=== PATIENT | male | born 1950 ===

== ENCOUNTER 2020-01-12 18:36 | Observation (INO) | payer MEDICARE, OTHER ==
[~2020-01-12] VITALS: Ht 175.3 cm; Wt 54.5 kg
--- NOTE | 2020-01-12 18:46 | NUR ---
CP FOR LAST THREE DAYS WORSE WITH EXCERTION, HX OF RECENT ER VISIT FOR SAME. PT STATES "I WAS TOLD I HAD A 60% BLOCKAGE" PT LEFT AMA BECAUSE HE FELT STAFF WAS RUDE. PT WITH LBBB ON MONITOR. 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
--- NOTE | 2020-01-12 18:59 | NUR ---
BEDSIDE REPORT FROM JUAN OLEA. PT CARE TRANSFERRED AT THIS TIME. WAITING FOR ERP EVAL. NAD, STATES HE WAS AT HOSPITAL IN [place] FOR CHEST PAIN THEN LEFT AMA AND DROVE TO [place] TO BE WITH SON WHO IS GOING TO HELP PROVIDE CARE. PT BIB [facility] FOR CHEST PAIN. 324 MG ASA ENROUTE. PT PLACED ON SPO2/BP/ECG MONITORING. WCTM.
[2020-01-12] MEDS ORDERED: KETOROLAC 30 MG/1 ML IM ONE (19:30)
[2020-01-12] MEDS ORDERED: PLEASE ENTER ALLERGIES MC SCH (19:30)
[2020-01-12] MEDS ORDERED: KETOROLAC 30 MG/1 ML ONE (19:55)
--- NOTE | 2020-01-12 20:02 | NUR ---
pt medicated per jul, resting on gurney, VSS, NAD, placed on 2L NC for SPO2 sats. Now satting at 95%. pt denies additional needs at this time. WCTM.
[2020-01-12 20:39] LABS: BASOPHILS # (AUTO) 0.02 x10^3/uL (0-0.1); BASOPHILS % (AUTO) 1 % (0-1); EOSINOPHILS # (AUTO) 0.13 x10^3/uL (0-0.4); EOSINOPHILS % (AUTO) 4 % (1-7); LYMPHOCYTES # (AUTO) 0.96 x10^3/uL (1-3.4); LYMPHOCYTES % (AUTO) 29 % (22-44); MD NO; MEAN CORPUSCULAR HEMOGLOBIN 34.2 pg (27.5-34.5); MEAN CORPUSCULAR HGB CONC 33.1 g/dL (33.2-36.2); MEAN CORPUSCULAR VOLUME 103.3 fL (81-97); MEAN PLATELET VOLUME 9.2 fL (7.4-10.4); MONOCYTES # (AUTO) 0.27 x10^3/uL (0.2-0.8); MONOCYTES % (AUTO) 8 % (2-9); NEUTROPHILS # (AUTO) 1.96 x10^3/uL (1.8-6.8); NEUTROPHILS % (AUTO) 59 % (42-75); PLATELET COUNT 138 x10^3/uL (130-400); RED BLOOD COUNT 3.89 x10^6/uL (4.38-5.82); RED CELL DISTRIBUTION WIDTH 13.3 % (9.4-14.8)
--- NOTE | 2020-01-12 20:47 | NUR ---
PT SITTING UP IN [facility], STATES HIS PAIN IS A "9/10" AND THAT HE IS UNCOMFORTABLE. PT APPEARS NAD, SON AT BS. NO CHANGE IN CONDITION. WCTM.
[2020-01-12 20:49] LABS: ALANINE AMINOTRANSFERASE 29 U/L (12-78); CALCIUM 8.7 mg/dL (8.5-10.1)
[2020-01-12 20:54] LABS: ALKALINE PHOSPHATASE 81 U/L (45-117); BILIRUBIN,TOTAL 0.8 mg/dL (0.2-1.0); CREATININE 0.74 mg/dL (0.7-1.3); TOTAL PROTEIN 7.3 g/dL (6.4-8.2); TROPONIN I 0.025 ng/mL (0.000-0.045)
[2020-01-12] MEDS ORDERED: ONDANSETRON 2MG/ML, 2ML IVPush ONE (21:00)
[2020-01-12] MEDS ORDERED: MORPHINE SULFATE 4 MG/ML, 1ML IVPush PRN (21:00)
[2020-01-12 21:03] LABS: ANION GAP 3 mmol/L (5-15); CHLORIDE 110 mmol/L (98-107)
--- NOTE | 2020-01-12 21:05 | NUR ---
PT MEDICATED PER MAR FOR PAIN, NAD, NO CHANGE IN CONDITION, WCTM, PT UP FOR RECHECK. SON AT .
[2020-01-12] MEDS ORDERED: ONDANSETRON 2MG/ML, 2ML ONE (21:06)
[2020-01-12] MEDS ORDERED: MORPHINE SULFATE 4 MG/ML, 1ML ONE (21:07)
--- NOTE | 2020-01-12 21:57 | NUR ---
pt instructed in how to use incentive spirometer. pt demonstrated skill appropriately. RN to BS, pt had removed NC, NC placed back in nose, O2 sats back to 94% on 3L. pt expressing to RN that "I am very aggitated that i am being admitted cause theres alwasy just another [facility] doctor to see". pt states "everytime i get stuck in a [facility] i have no reading glasses either." waiting for admit bed and orders, pt nad, wctm.
[2020-01-12] MEDS ORDERED: PROP60CA PO (22:29)
[2020-01-12] MEDS ORDERED: LISI-170 PO (22:29)
[2020-01-12] MEDS ORDERED: MELO15TA24 PO (22:29)
[2020-01-12] MEDS ORDERED: ventolin INH (22:29)
[2020-01-12] MEDS ORDERED: BUDE10.2 INH (22:29)
[2020-01-12] MEDS ORDERED: meloxicam PO (22:29)
[2020-01-12] MEDS ORDERED: CLON1TAB11 PO (22:29)
[2020-01-12] MEDS ORDERED: ALBU2TAB PO (22:29)
--- NOTE | 2020-01-12 22:30 | NUR ---
med req obtained, son at bs, pt resting on gurney, nad, vss, denies additional needs at this time. waiting for admit bed, wctm.
--- NOTE | 2020-01-12 23:20 | NUR ---
LATE ENTRY: REPORT CALLED TO MERLINE OLEA, PT TO BE TRANSFERRED TO FLOOR.
[2020-01-13 01:46] VITALS: BP 156/69
[2020-01-13] MEDS ORDERED: SODIUM CHLORIDE 0.9% 1,000 ML IV SCH (02:21)
[2020-01-13] MEDS ORDERED: ONDANSETRON ODT 4 MG PO PRN (02:30)
[2020-01-13] MEDS ORDERED: ONDANSETRON 2MG/ML, 2ML IVPush PRN (02:30)
[2020-01-13] MEDS ORDERED: POLYETHYLENE GLYCOL 17 GM PACKET PO PRN (02:30)
[2020-01-13] MEDS ORDERED: BISACODYL 10 MG SUPP PR PRN (02:30)
[2020-01-13] MEDS ORDERED: OXYcodone IR 5MG TABLET PO PRN (02:30)
[2020-01-13] MEDS ORDERED: hydrALAzine 20 MG/ML, 1ML IVPush PRN (02:30)
[2020-01-13] MEDS ORDERED: DOCUSATE 100 MG CAPSULE PO PRN (02:30)
[2020-01-13] MEDS ORDERED: PROMETHAZINE 25 MG/ML, 1ML IM PRN (02:30)
[2020-01-13] MEDS ORDERED: ACETAMINOPHEN 325 MG TABLET PO PRN (02:30)
[2020-01-13] MEDS ORDERED: morphine SULFATE 10 MG/ML, 1ML IVPush PRN (02:30)
[2020-01-13] MEDS ORDERED: ALBUTEROL HFA 90 MCG/SPRAY INH PRN (03:30)
[2020-01-13 04:23] LABS: LDL/HDL RATIO 0.8 (0.5-3.0)
[2020-01-13 04:33] LABS: FREE T4 (FREE THYROXINE) 1.13 ng/dL (0.76-1.46)
[2020-01-13] MEDS: HEPARIN 5,000 UNITS/ML, 1ML SQ SCH ×3 (06:04→21:55)
[2020-01-13 07:49] VITALS: BP 171/85
[2020-01-13] MEDS ORDERED: REGADENOSON 0.4 MG/5 ML SYRINGE ONE (08:10)
[2020-01-13] MEDS: LISINOPRIL 40 MG TABLET PO SCH (08:23)
[2020-01-13] MEDS: MELOXICAM 15 MG TABLET PO SCH (08:23)
[2020-01-13 09:05] LABS: TROPONIN I 0.027 ng/mL (0.000-0.045)
[2020-01-13] MEDS ORDERED: METHOCARBAMOL 500 MG TABLET PO PRN (11:00)
[2020-01-13] MEDS: FLUTICASONE/VILANTEROL 200-25MCG/INH INH SCH (11:57)
[2020-01-13] MEDS: ACETAMINOPHEN 325 MG TABLET PO SCH ×4 (11:57→21:55)
[2020-01-13] MEDS: PROPRANOLOL 60 MG CAP.SA.24H PO SCH (11:57)
[2020-01-13 14:55] VITALS: BP_SYST 104; BP_SYST 160; BP_DIAS 54; BP_DIAS 84
[2020-01-13] MEDS: METHOCARBAMOL 500 MG TABLET PO SCH ×2 (17:16→21:55)
[2020-01-13] MEDS ORDERED: NICOTINE 21 MG/24 HR PATCH.TD24 TD ONE (17:30)
[2020-01-13 21:00] VITALS: BP 145/61
[2020-01-13] MEDS ORDERED: ATORVASTATIN 20 MG TABLET PO SCH (21:00)
[2020-01-14 02:06] VITALS: BP 152/77
[2020-01-14] MEDS: ACETAMINOPHEN 325 MG TABLET PO SCH ×3 (03:00→11:11)
[2020-01-14 05:56] LABS: BASOPHILS # (AUTO) 0.02 x10^3/uL (0-0.1); BASOPHILS % (AUTO) 1 % (0-1); EOSINOPHILS # (AUTO) 0.13 x10^3/uL (0-0.4); EOSINOPHILS % (AUTO) 4 % (1-7); LYMPHOCYTES # (AUTO) 0.76 x10^3/uL (1-3.4); LYMPHOCYTES % (AUTO) 22 % (22-44); MD NO; MEAN CORPUSCULAR HEMOGLOBIN 34.4 pg (27.5-34.5); MEAN CORPUSCULAR HGB CONC 33.4 g/dL (33.2-36.2); MEAN CORPUSCULAR VOLUME 102.9 fL (81-97); MONOCYTES # (AUTO) 0.33 x10^3/uL (0.2-0.8); MONOCYTES % (AUTO) 10 % (2-9); NEUTROPHILS # (AUTO) 2.19 x10^3/uL (1.8-6.8); NEUTROPHILS % (AUTO) 64 % (42-75); PLATELET COUNT 129 x10^3/uL (130-400); RED BLOOD COUNT 3.41 x10^6/uL (4.38-5.82); RED CELL DISTRIBUTION WIDTH 13.7 % (9.4-14.8)
[2020-01-14] MEDS ORDERED: ASPIRIN 81 MG TABLET EC PO SCH (06:00)
[2020-01-14] MEDS: HEPARIN 5,000 UNITS/ML, 1ML SQ SCH ×2 (06:06→14:00)
[2020-01-14] MEDS: METHOCARBAMOL 500 MG TABLET PO SCH ×2 (06:06→11:11)
[2020-01-14 06:09] LABS: ALBUMIN 2.5 g/dL (3.4-5.0); CALCIUM 8.2 mg/dL (8.5-10.1); CHLORIDE 106 mmol/L (98-107)
[2020-01-14 06:12] LABS: CREATININE 0.85 mg/dL (0.7-1.3)
[2020-01-14 06:13] LABS: ALANINE AMINOTRANSFERASE 23 U/L (12-78); ALKALINE PHOSPHATASE 73 U/L (45-117); BILIRUBIN,TOTAL 0.7 mg/dL (0.2-1.0); TOTAL PROTEIN 5.8 g/dL (6.4-8.2)
[2020-01-14 06:18] LABS: ANION GAP 3 mmol/L (5-15)
[2020-01-14 07:38] VITALS: BP 157/89
[2020-01-14] MEDS: PROPRANOLOL 60 MG CAP.SA.24H PO SCH (09:21)
[2020-01-14] MEDS: MELOXICAM 15 MG TABLET PO SCH (09:21)
[2020-01-14] MEDS: LISINOPRIL 40 MG TABLET PO SCH (09:21)
[2020-01-14] MEDS: FLUTICASONE/VILANTEROL 200-25MCG/INH INH SCH (09:22)
[2020-01-14 12:30] VITALS: BP 167/86
[2020-01-14] MEDS ORDERED: ATOR20TA37 PO (12:54)
[2020-01-14] MEDS ORDERED: METH500T7 PO (12:54)
[2020-01-14] MEDS ORDERED: ASPI81TA45 PO (12:54)
[2020-01-14] MEDS ORDERED: ACET325T26 PO (12:54)
[2020-01-14] MEDS ORDERED: METHOCARBAMOL 500 MG TABLET PO PRN (17:00)
== END 2020-01-14 14:39 | disposition home or self-care (01) ==
LOC: ED 22:56 → INTOOBSV 23:25 → EDIP 23:25 → 5SO 23:40
PROVIDERS: ADMIT Internal Medicine; ATTEND Internal Medicine
DX: R07.89 Other chest pain (principal); I25.10 Atherosclerotic heart disease of native coronary artery without angina pectoris; I10 Essential (primary) hypertension; J44.9 Chronic obstructive pulmonary disease, unspecified; G20 Parkinson's disease; E43 Unspecified severe protein-calorie malnutrition; I25.2 Old myocardial infarction; I51.89 Other ill-defined heart diseases; I44.7 Left bundle-branch block, unspecified; I34.0 Nonrheumatic mitral (valve) insufficiency; J96.10 Chronic respiratory failure, unspecified whether with hypoxia or hypercapnia; Z79.82 Long term (current) use of aspirin; Z79.899 Other long term (current) drug therapy; Z87.891 Personal history of nicotine dependence
CPT/HCPCS: 36415; 71101; 78452; 80053; 80061; 82607; 83036; 83735; 84439; 84443; 84484; 85025; 93005; 93017; 93306; 93356; 96361; 96372; 96374; 96375; 99285; A9502; G0378; J1644; J1885; J2270; J2405; J2785; J7030; 96376